=== PATIENT | male | born 1950 | race Caucasian/White ===

== ENCOUNTER 2023-03-22 08:20 | Outpatient (RCR) | payer OTHER, SELFPAY | END 2023-03-22 23:59 | disposition home or self-care (01) | LOC: RPT 08:20 | PROVIDERS: ATTENDING PHYSICIAN Specialist; FAMILY PHYSICIAN Student in an Organized Health Care Education/Training Program | DX: C61 Malignant neoplasm of prostate (principal); Z73.6 Limitation of activities due to disability; M62.81 Muscle weakness (generalized) | CPT/HCPCS: 97162; 97530 ==

== ENCOUNTER 2023-05-24 09:52 | Outpatient (RCR) | payer OTHER, SELFPAY | END 2023-05-24 23:59 | disposition home or self-care (01) | LOC: RPT 09:52 | PROVIDERS: ATTENDING PHYSICIAN Specialist; FAMILY PHYSICIAN Student in an Organized Health Care Education/Training Program | DX: C61 Malignant neoplasm of prostate (principal); N39.3 Stress incontinence (female) (male); M62.89 Other specified disorders of muscle; M62.81 Muscle weakness (generalized); Z73.6 Limitation of activities due to disability | CPT/HCPCS: 97110; 97112; 97164; 97530 ==

== ENCOUNTER 2023-06-21 10:05 | Outpatient (RCR) | payer OTHER, SELFPAY | END 2023-06-21 23:59 | disposition home or self-care (01) | LOC: RPT 10:05 | PROVIDERS: ATTENDING PHYSICIAN Specialist; FAMILY PHYSICIAN Student in an Organized Health Care Education/Training Program | DX: C61 Malignant neoplasm of prostate (principal); N39.3 Stress incontinence (female) (male); M62.89 Other specified disorders of muscle; M62.81 Muscle weakness (generalized); Z73.6 Limitation of activities due to disability | CPT/HCPCS: 97110; 97112; 97140; 97530 ==

== ENCOUNTER 2023-07-29 09:01 | Outpatient (RCR) | payer OTHER, SELFPAY | END 2023-07-29 23:59 | disposition home or self-care (01) | LOC: RPT 09:01 | PROVIDERS: ATTENDING PHYSICIAN Specialist; FAMILY PHYSICIAN Student in an Organized Health Care Education/Training Program | DX: N39.3 Stress incontinence (female) (male) (principal); M62.81 Muscle weakness (generalized); C61 Malignant neoplasm of prostate; Z73.6 Limitation of activities due to disability | CPT/HCPCS: 97110; 97530 ==

== ENCOUNTER 2023-08-15 10:07 | Outpatient (RCR) | payer OTHER, SELFPAY | END 2023-08-15 23:59 | disposition home or self-care (01) | LOC: RPT 10:07 | PROVIDERS: ATTENDING PHYSICIAN Specialist; FAMILY PHYSICIAN Student in an Organized Health Care Education/Training Program | DX: C61 Malignant neoplasm of prostate (principal); N39.3 Stress incontinence (female) (male); M62.89 Other specified disorders of muscle; M62.81 Muscle weakness (generalized); Z73.6 Limitation of activities due to disability | CPT/HCPCS: 97110; 97140; 97530 ==

== ENCOUNTER → 2023-09-10 06:28 | Outpatient (REF) | payer OTHER, SELFPAY | LOC: MRI 3T 06:28 | PROVIDERS: ATTENDING PHYSICIAN Pain Medicine Interventional Pain Medicine; FAMILY PHYSICIAN Student in an Organized Health Care Education/Training Program | DX: M54.16 Radiculopathy, lumbar region (principal) | CPT/HCPCS: 72148 ==

== ENCOUNTER 2023-12-02 09:31 | Emergency (ER) | payer OTHER, SELFPAY ==
[2023-12-02 10:34] VITALS: BP 162/84
[2023-12-02 11:00] VITALS: BP 155/87
[2023-12-02 11:15] LABS: % Basophils 0.5 % (0-2); % Eosinophils 2.4 % (0-6); % Immature Granulocytes 0.7 % (0-0.5); % Lymphocytes 23.7 % (20.5-51.1); % Monocytes 9.8 % (1.7-9.3); % Neutrophils 62.9 % (42.2-75.2); Absolute Basophils 0.1 10^3/uL (0-0.2); Absolute Eosinophils 0.2 10^3/uL (0-0.7); Absolute Immature Granulocytes 0.1 10^3/uL (0-0.05); Absolute Lymphocytes 2.3 10^3/uL (1.2-3.4); Absolute Neutrophils 6.2 10^3/uL (1.4-6.5); Hematocrit 47.4 % (39.0-52.0); Hemoglobin 16.6 g/dL (13.0-18.0); Mean Corpuscular Volume 88.6 fL (80.0-94.0); Mean Platelet Volume 8.5 fL (7.4-10.4); Nucleated Red Blood Cells % 0 % (-); Platelet Count 198 10^3/uL (130-400); Red Blood Cell Count 5.35 10^6/uL (4.70-6.10); White Blood Cell Count 9.9 10^3/uL (4.8-10.8)
[2023-12-02 11:32] LABS: Blood Urea Nitrogen 13 mg/dl (9-20); Calcium 9.8 mg/dl (8.4-10.2); Carbon Dioxide 30 mmol/L (22-30); Chloride 101 mmol/L (98-107); Glucose 94 mg/dl (70-99); Potassium 5.3 mmol/L (3.5-5.1); Sodium 138 mmol/L (135-145); eGFR > 60.00
[2023-12-02 12:00] VITALS: BP 127/83
[2023-12-02 12:03] LABS: TSH Reflex To Free T4 1.96 uIU/ml (0.47-4.68)
--- NOTE | 2023-12-02 12:18 | ED.GENMED ---
History of Present Illness
General
Chief Complaint: Heart Rate Problem
Source: patient
Exam Limitations: none
Time Seen by Provider: 12/02/23 10:45
History of Present Illness
History of Present Illness:
Patient sent from urgent care with a concern for atrial fibrillation. Denies palpitations chest pain shortness of breath. Complaining of some nasal congestion and cough has been ongoing in nature.
Past History
Past History
ED Past Medical History: Cancer and Other (Peripheral vascular disease)
ED Past Surgical History: None and Other (Vascular stent)
Social History
Tobacco: Smoker
Personal:
Living: with family
Employment: Employed ([employer])
Family History
Family History: CAD
Review of Systems
Review of Systems
All Other Systems: Not applicable
Constitutional: Denies fever
Cardiac: Denies chest pain or syncope
ABD/GI: Reports no symptoms
Phy Exam
Physical Exam
Physical Exam:
GENERAL: Alert and oriented in no apparent distress
EYE: Orbits normal.
NECK: Supple
CARDIAC: Regular rate and rhythm without any obvious murmurs.
LUNGS: Mildly distant
ABDOMEN: Soft, without focal tenderness or distention
NEUROLOGICAL: Alert and oriented , grossly non-focal
SKIN: Warm and dry, no rash or lesion, no discoloration, skin intact.
MUSCULOSKELETAL: No edema,no deformity.Good color
PSYCH: Normal and appropriate interaction.
Course
Orders/Labs/Results
Orders:
Orders
12/02/23 09:32
Electrocardiogram (*1) Urgent
Reason for Study: Palpitations
EKG- Treatment ONCE
12/02/23 10:57
CXR2 [CR Chest - 2 Views ] Urgent
Comment:
Reason For Exam: cough/smoker
12/02/23 11:01
BMP [Basic Metabolic Panel] Urgent
CBC/With Diff [Complete Blood Count/With Diff] Urgent
TSH Reflex To Free T4 Urgent
Abnormal Lab Results
12/02/23
11:01
Abs Immat Gran (auto) 0.1 H 10^3/uL
(0-0.05)
Absolute Monos (auto) 1.0 H 10^3/uL
(0.1-0.6)
Immature Gran % 0.7 H %
(0-0.5)
Monocytes % 9.8 H %
(1.7-9.3)
Potassium 5.3 H mmol/L
(3.5-5.1)
12/02/23 11:01
12/02/23 11:01
Vital Signs
Initial and Last Documented VS:
Initial Vital Signs
Pulse Resp BP Pulse Ox
61 22 162/84 99
12/02/23 10:34 12/02/23 10:34 12/02/23 10:34 12/02/23 10:34
Last Documented Vital Signs
Pulse Resp BP Pulse Ox
64 29 127/83 98
12/02/23 12:00 12/02/23 12:00 12/02/23 12:00 12/02/23 11:30
MDM/Problems Addressed
Differential Diagnosis Includes:
Patient has no documentation of atrial fibrillation either from the urgent care center or here. He has normal sinus rhythm but has PACs. As for his respiratory symptoms appear to be a persistent upper respiratory bronchitis/URI. Patient is
requesting antibiotics and given the prolonged symptoms not unreasonable. Medically stable for discharge
*Radiology
Radiology exam reviewed: preliminary read by ED provider (Small left effusion) and radiology read reviewed (Negative)
*Pulse Oximetry
Patient hypoxic: no
*EKG
Interpreted by ED Provider?: Yes
Interpretation: abnormal
Comparison EKG: no changes
Heart Rate: 59
Rate: bradycardiac
Rhythm: sinus and PAC's
Norton: normal axis
Interval: normal interval
QRS Pattern: normal QRS
Ischemia: no ischemia
*Pharmacy Coordinator Interpretation
Rate: normal
Interpretation: normal
Heart Rate: 80
Rhythm: PAC's
*Critical Care Note
Total Time (30-74mins, 75-104mins- exclusive of procedures): Not Applicable
Data Reviewed
Review of Other/Old Records Reveals: Testing (Urgent care EKG. Previous EKGs/)
Update Note
Update Note:
Patient has had no atrial fibrillation based on the EKG at the urgent care office are EKG on the monitor. He does have occasional PACs. Here primarily for respiratory symptoms ongoing congestion runny nose. Likely viral but patient clearly wants
antibiotic coverage. Not unreasonable giving ongoing symptoms.
ED Attending Note
-
Portions of this chart may have been created with voice recognition software.� Occasional wrong word or��sound alike� substitutions may have occurred due to the inherent limitations of voice recognition software.
Discharge Plan
Departure
Patient Disposition: Home (Routine Discharge)
Date of Disposition: 12/02/23
Time of Disposition: 12:19
Patient with high blood pressure during this ER visit?: Yes
Discharge Problem:
Evaluation of cardiac arrhythmia, PACs, Ongoing URI
Instructions: Palpitations (DC), BLOOD PRESSURE
Prescriptions:
New
doxycycline hyclate 100 mg capsule
100 mg PO BID 10 Days Qty: 20 0RF
No Action
zinc 50 mg Capsule
50 mg PO DAILY
cholecalciferol (vitamin D3) [Vitamin D3] 25 mcg (1,000 unit) Tablet
25 mcg PO DAILY
Lions Magdy
1 tab PO DAILY
naproxen sodium [Aleve] 220 mg tablet
440 mg PO BID PRN (Reason: Pain) Qty: 1 0RF
tramadol 50 mg tablet
50 mg PO TID PRN (Reason: severe pain) Qty: 10 0RF
Referrals:
[facility] [Provider Group] - Next open appointment
NONE,* [Family Provider] -
Activity Restrictions/Additional Instructions:
Antibiotics as directed
Stay well-hydrated
If you do not have a primary physician, you may want to try the family practice residency program
Of course if you have worsening symptoms shortness of breath fever chest pain etc., return immediately to the ER
Interventions
Interventions:
*Risk Screen - Suicide Last Done: 12/02/23 09:43
*General Assessment Last Done: 12/02/23 09:43
*Neglect/Abuse Screening Last Done: 12/02/23 09:43
ED- Fall Risk Assessment Last Done: 12/02/23 10:46
*Nursing Disposition Last Done: 12/02/23 12:32
ED- Cardiac Assessment Last Done: 12/02/23 10:46
ED- Pulmonary Assessment Last Done: 12/02/23 10:46
Discharge Date and Time
Discharge Date/Time: 12/02/23 12:33
Print Language: MAORI
== END 2023-12-02 12:33 | disposition home or self-care (01) ==
LOC: EMR 09:31
PROVIDERS: EMERGENCY PHYSICIAN Emergency Medicine
DX: I49.9 Cardiac arrhythmia, unspecified (principal); I49.1 Atrial premature depolarization; J06.9 Acute upper respiratory infection, unspecified; I73.9 Peripheral vascular disease, unspecified; Z82.49 Family history of ischemic heart disease and other diseases of the circulatory system; F17.200 Nicotine dependence, unspecified, uncomplicated
CPT/HCPCS: 99283; 71046; 80048; 84443; 85025; 93005

== ENCOUNTER → 2024-08-20 12:34 | Outpatient (REF) | payer OTHER, SELFPAY | LOC: HWRAD 12:34 | PROVIDERS: ATTENDING PHYSICIAN Physician Assistant; FAMILY PHYSICIAN Student in an Organized Health Care Education/Training Program | DX: M54.50 Low back pain, unspecified (principal); M54.6 Pain in thoracic spine; M79.643 Pain in unspecified hand | CPT/HCPCS: 72070; 72114; 73130 ==

== ENCOUNTER 2025-02-24 11:54 | Emergency (ER) | payer OTHER, SELFPAY ==
[2025-02-24 11:58] VITALS: BP 155/83
[2025-02-24 12:23] LABS: Hematocrit 39.7 % (39.0-52.0); Hemoglobin 13.9 g/dL (13.0-18.0); Mean Corp Hgb Conc. 35.0 g/dL (33.0-37.0); Mean Corpuscular Volume 91.3 fL (80.0-94.0); Nucleated Red Blood Cells % 0 % (-); Platelet Count 301 10^3/uL (130-400); Red Cell Dist. Width 13.9 % (11.5-14.5)
[2025-02-24 12:40] LABS: ALT (SGPT) 17 U/L (0-50); AST (SGOT) 25 U/L (17-59); Albumin 4.7 g/dl (3.5-5.0); Alkaline Phosphatase 115 U/L (38-126); Blood Urea Nitrogen 13 mg/dl (9-20); Calcium 10.7 mg/dl (8.4-10.2); Carbon Dioxide 24 mmol/L (22-30); Chloride 102 mmol/L (98-107); Glucose 106 mg/dl (70-99); Potassium 4.6 mmol/L (3.5-5.1); Sodium 136 mmol/L (135-145); Total Protein 6.9 g/dl (6.3-8.2); eGFR > 60.00
--- NOTE | 2025-02-24 17:02 | ED.GENMED ---
History of Present Illness
General
Chief Complaint: Skin Problem
Source: patient
Time Seen by Provider: 02/24/25 15:57
History of Present Illness
History of Present Illness:
75-year-old male presents to the emergency room for evaluation of a wound on his left foot. Patient states that he spilled hot water on his left foot about 10 days ago. He had a sock on and could not get the sock off very rapidly. He had some
blistering initially and now has a large wound that is covered with zhou-black material. He has some mild surrounding redness. No fever or chills. The pain is not really getting much better. Patient is not diabetic.
Past History
Past History
ED Past Medical History: Cancer and Other (Peripheral vascular disease)
ED Past Surgical History: None and Other (Vascular stent)
Social History
Tobacco: Smoker
Personal:
Living: with family
Employment: Employed ([employer])
Family History
Family History: CAD
Phy Exam
Physical Exam
Physical Exam:
General: Awake, Alert, Oriented X3. No acute distress.
Vitals: unremarkable
Head: Atraumatic
Eyes: Pupils equal, EOMI
Neck: Trachea midline
Lungs: Clear and equal b/l
Heart: Regular rate, no murmurs
Neuro: Nonfocal
Skin: Warm, dry, no rash
Extremities: pulses equal b/l approximately 8 cm x 4 cm area of eschar noted.
Course
Orders/Labs/Results
Orders:
Orders
02/24/25 12:03
Electrocardiogram (*1) Urgent
Reason for Study: Other
Other Reason for Exam: Possible Sepsis
Cardiac Monitoring- Treatment ONCE
EKG- Treatment ONCE
IV Insert/Care/Rem.- Treatment PRN
O2 Therapy [RESP] Urgent
Titrate/Wean O2 to maintain O2 sat greater than (%): 93
Special Instructions: TO MAINTAIN CONTINUOUS O2 SATS > OR = 93%
Pulse Ox/cont/shift [RESP] Urgent
Quantity: 1
Special Instructions: CONTINUOUS
02/24/25 12:14
Complete Blood Count/With Diff Urgent
Comprehensive Metabolic Panel Urgent
Lactic Acid Q4H
Comment: ON ICE, CANCEL 2ND ORDER IF FIRST LACTIC ACID LEVEL <2
Blood Culture Q20M
RUPESH Source: Blood/Venous
Specimen Description:
Comment: Urgent from separate sites. If patient screens positive for possible sepsis
Abnormal Lab Results
02/24/25
12:14
RBC 4.35 L 10^6/uL
(4.70-6.10)
MCH 32.0 H pg
(27.0-31.0)
Absolute Monos (auto) 0.9 H 10^3/uL
(0.1-0.6)
Monocytes % 10.7 H %
(1.7-9.3)
Glucose 106 H mg/dl
(70-99)
Lactic Acid 2.1 H mmol/L
(0.7-2.0)
Calcium 10.7 H mg/dl
(8.4-10.2)
02/24/25 12:14
02/24/25 12:14
Vital Signs
Initial and Last Documented VS:
Initial Vital Signs
Temp Pulse Resp BP Pulse Ox
97.6 F 81 20 155/83 99
02/24/25 11:58 02/24/25 11:58 02/24/25 11:58 02/24/25 11:58 02/24/25 11:58
Last Documented Vital Signs
Temp Pulse Resp BP Pulse Ox
97.6 F 81 20 155/83 99
02/24/25 11:58 02/24/25 11:58 02/24/25 11:58 02/24/25 11:58 02/24/25 17:08
MDM/Problems Addressed
Differential Diagnosis Includes:
Third-degree burn, partial-thickness second-degree burn, infected burn
MDM/Problems Addressed:
Patient presents with a wound on his foot from spilling hot water onto it. There is a dense eschar over the wound. This was debrided. Once debrided the skin under it appears to be granulating nicely. Though there is some mild surrounding
erythema I do not believe the wound actually is infected. I think this is more reactive erythema. Will have the patient apply a antibiotic ointment and change the dressing a couple times a day. Follow with the wound care center or [place] [facility]
*Pulse Oximetry
SaO2: 99
Oxygen Mode of Delivery: Room air
Patient hypoxic: no
*Critical Care Note
Total Time (30-74mins, 75-104mins- exclusive of procedures): Not Applicable
ED Attending Note
-
Portions of this chart may have been created with voice recognition software.� Occasional wrong word or��sound alike� substitutions may have occurred due to the inherent limitations of voice recognition software.
Discharge Plan
Departure
Patient Disposition: Home (Routine Discharge)
Date of Disposition: 02/24/25
Time of Disposition: 17:03
Patient with high blood pressure during this ER visit?: Yes
Condition: Good
Discharge Problem:
Burn of foot, left, second degree
Instructions: [facility]
Prescriptions:
No Action
zinc 50 mg Capsule
50 mg PO DAILY
cholecalciferol (vitamin D3) [Vitamin D3] 25 mcg (1,000 unit) Tablet
25 mcg PO DAILY
Lions Magdy
1 tab PO DAILY
naproxen sodium [Aleve] 220 mg tablet
440 mg PO BID PRN (Reason: Pain) Qty: 1 0RF
tramadol 50 mg tablet
50 mg PO TID PRN (Reason: severe pain) Qty: 10 0RF
doxycycline hyclate 100 mg capsule
100 mg PO BID 10 Days Qty: 20 0RF
Referrals:
Kiran Ames MD [Family Provider, Family Practice]
[facility] [[facility]]
Activity Restrictions/Additional Instructions:
If you are not able to get an appointment at our [facility] in the next week to 10 days call the [place] [facility] at [phone] and see if they can get you an appointment.
Change the dressing once or twice a day if soiled. Return if you develop a fever or you have significant increase in redness spreading up your leg.
Interventions
Interventions:
*General Assessment Last Done: 02/24/25 15:43
*Neglect/Abuse Screening Last Done: 02/24/25 15:43
*ED COVID-19 Vaccine History Last Done: 02/24/25 11:58
*ED Influenza Vaccine History Last Done: 02/24/25 11:58
*Risk Screen - Suicide (C-SSRS) Last Done: 02/24/25 11:58
*Nursing Disposition Last Done: 02/24/25 17:31
ED-Skin Assessment Last Done: 02/24/25 15:43
Discharge Date and Time
Discharge Date/Time: 02/24/25 17:32
Print Language: SLOVENIAN
== END 2025-02-24 17:32 | disposition home or self-care (01) ==
LOC: EMR 11:54
PROVIDERS: Emergency Medicine; EMERGENCY PHYSICIAN Emergency Medicine; FAMILY PHYSICIAN Family Medicine
DX: T25.222A Burn of second degree of left foot, initial encounter (principal); X11.8XXA Contact with other hot tap-water, initial encounter; I73.9 Peripheral vascular disease, unspecified; F17.200 Nicotine dependence, unspecified, uncomplicated; Z82.49 Family history of ischemic heart disease and other diseases of the circulatory system
CPT/HCPCS: 99283; 80053; 83605; 85025; 87040